=== PATIENT | female | born 1975 | race African-American/Black ===

== ENCOUNTER → 2016-03-19 | Outpatient (CLI) | payer MEDICARE, BC, OTHER ==
[~2016-03-19] MED LIST: ADIPEX-P37.5 MG PO; DESYREL 50MG50 MG PO; DOXYCYCLINE 10100 MG PO; GLUCOPHAGE500 MG/TAB PO; INTUNIV4 MG PO; LAMICTAL XR300 MG PO; PHENTERMINE15 MG PO; RETIN A 0.01% TP; VISTARIL 2525 MG/CAP PO; ZOLOFT 25MG25 MG PO
== END ==
LOC: BHSO 10:06
DX: F31.81 Bipolar II disorder (principal)

== ENCOUNTER → 2016-07-01 | Outpatient (CLI) | payer MEDICARE, BC, OTHER | LOC: BHSO 10:48 | DX: F90.0 Attention-deficit hyperactivity disorder, predominantly inattentive type (principal) ==

== ENCOUNTER → 2016-10-19 | Outpatient (CLI) | payer MEDICARE, BC, OTHER | LOC: BHSO 09:48 | DX: F31.73 Bipolar disorder, in partial remission, most recent episode manic (principal) ==